=== PATIENT | male | born 1985 | race Two or more races ===

== ENCOUNTER 2017-05-17 21:23 | Emergency (ER) | payer SELFPAY ==
[~2017-05-17] VITALS: Ht 172.7 cm; Wt 68.9 kg
[2017-05-17 22:29] VITALS: BP 139/73
== END 2017-05-17 22:42 | disposition home or self-care (01) ==
LOC: ER 21:25
DX: L03.114 Cellulitis of left upper limb (principal); B86 Scabies
CPT/HCPCS: A4606; Z7610